=== PATIENT | male | born 1970 | race Caucasian/White ===

== ENCOUNTER 2020-08-13 18:55 | Emergency (ER) | payer OTHER ==
[~2020-08-13] VITALS: Ht 182.9 cm; Wt 81.7 kg
[2020-08-13 23:25] LABS: ABSOLUTE NEUTROPHILS 10.5 thou/uL (1.4-8.2); BASOPHILS 0.6 % (0.0-2.0); EOSINOPHILS 1.6 % (0.0-3.0); HEMATOCRIT 39.2 % (42.0-52.0); HEMOGLOBIN 13.2 gm/dL (14.0-18.0); LYMPHOCYTES 10.8 % (24.0-44.0); MCH 29.2 pg (26.0-34.0); MCHC 33.7 g/dL (28.0-37.0); MCV 86.8 fL (80.0-100.0); MONOCYTES 7.2 % (1.0-8.0); PLATELET COUNT 281 thou/uL (150-400); POLYS 79.8 % (36.0-66.0); RBC 4.51 mil/uL (4.50-6.00); WBC 13.2 thou/uL (4.0-11.0)
[2020-08-13 23:35] LABS: ANION GAP 8 mmol/L (7-16); BUN 9 mg/dL (7-18); CALCIUM 8.6 mg/dL (8.5-10.1); CHLORIDE 106 mmol/L (98-107); CO2 29 mmol/L (21-32); CREATININE 0.8 mg/dL (0.7-1.3); GLUCOSE 97 mg/dL (74-106); POTASSIUM 3.6 mmol/L (3.5-5.1); SODIUM 143 mmol/L (136-145)
[2020-08-13 23:46] LABS: TROPONIN-I <0.06 ng/mL (<0.06)
[2020-08-14] MEDS ORDERED: IBUPROFEN 600600 M1 PO (00:08)
[2020-08-14] MEDS ORDERED: ULTRAM 50MG TAB50 MG PO (00:08)
[2020-08-14 00:36] VITALS: BP 118/80
--- NOTE | 2020-08-14 07:32 | EKG ---
[facility] [place] [address] ELECTROCARDIOGRAM REPORT Name: TOSHA SILVA Room #: DEP [facility]#: [id number] Admission: 08/13/20 Attend Phys: Discharge: 08/14/20 Date of : 70 Report #: [id number] THIS REPORT FOR: cc: NO FAMILY PHYSICIAN or PCP NO FAMILY PHYSICIAN or PCP Elkin Multani MD [facility] ~ THIS REPORT FOR: //name// [facility] ED Test Date: 2020-08-13 Test Time: 22:56:35 Pat Name: TOSHA SILVA Department: Room: Gender: Welcome Hostess: [place] [id number] : 1970 Requested By: Werner Potts Order Number: [id number] MD: Elkin Multani Measurements Intervals [place] Rate: 70 P: 68 MT: 142 QRS: 48 QRSD: 92 T: 47 QT: 367 QTc: 396 Interpretive Statements Sinus rhythm Probable left atrial enlargement No previous ECG available for comparison Electronically Signed On 08-14-2020 7:32:41 [employer] by Elkin Multani [email or web address] <ELECTRONICALLY SIGNED> By: Elkin Multani MD, FAC 08/14/20 0732 [id number] Elkin Multani MD, FAC /EPI
== END 2020-08-14 00:47 | disposition home or self-care (01) ==
LOC: ER 18:55
PROVIDERS: Emergency Medicine
DX: S20.219A Contusion of unspecified front wall of thorax, initial encounter (principal); M79.89 Other specified soft tissue disorders; F17.210 Nicotine dependence, cigarettes, uncomplicated; V89.2XXA Person injured in unspecified motor-vehicle accident, traffic, initial encounter; Y93.89 Activity, other specified; Y92.488 Other paved roadways as the place of occurrence of the external cause; Y99.8 Other external cause status